=== PATIENT | female | born 1995 | race Caucasian/White ===

== ENCOUNTER 2017-05-29 07:02 | Emergency (ER) | payer OTHER ==
[~2017-05-29] VITALS: Ht 165.1 cm; Wt 70.9 kg
[2017-05-29] MEDS ORDERED: DEXAMETHASONE 4 MG/ML, 1ML PO ONE (07:30)
[2017-05-29 07:33] VITALS: BP 118/78
[2017-05-29] MEDS ORDERED: DEXAMETHASONE 4 MG/ML, 5ML ONE (07:36)
== END 2017-05-29 07:47 | disposition home or self-care (01) ==
LOC: ED 07:30
DX: J02.0 Streptococcal pharyngitis (principal)
CPT/HCPCS: 99283; J1100